=== PATIENT | male | born 1970 | race Caucasian/White ===

== ENCOUNTER 2017-04-27 05:48 | Day surgery (SDC) | payer BC ==
[2017-04-27] MEDS ORDERED: RINGER'S SOLUTION,LACTATED 1,000 ML IV PRN ×2 (06:00→07:28)
[2017-04-27] MEDS ORDERED: RINGER'S SOLUTION,LACTATED 1,000 ML IV ONE (06:20)
[2017-04-27 08:19] VITALS: BP 123/90
--- NOTE | 2017-04-27 18:02 | OR ---
Operative Report - Dictated Report Narrative: OPERATIVE REPORT DATE OF OPERATION: 04/27/2017 PREOPERATIVE DIAGNOSIS: No prior dedicated colon studies. Abdominal pain. Rectal bleeding. Previous diverticulitis by patient history POSTOPERATIVE DIAGNOSIS: Normal colonoscopy to the cecum OPERATION: Colonoscopy SURGEON: Marvin Robert MD ANESTHESIA: SOL Berry CRNA INDICATIONS FOR PROCEDURE: The patient is a 47-year-old male referred by Dr Gonsales. He has had no previous dedicated colon studies. There is no family history of colon cancer. The patient reports being treated with antibiotics for diverticulitis about 10 months ago after a CT scan at [facility]. More recently he was treated empirically with antibiotics due to abdominal discomfort. He has occasional bright red blood on the tissue paper after stooling. FINDINGS: Normal colonoscopy to the cecum. Specifically no diverticulosis was demonstrated, and aside from engorgement of anal canal veins no bleeding sites were identified. NARRATIVE OF PROCEDURE: The patient was identified in the holding area, and prior to the administration of anesthetic, a multidisciplinary timeout was observed. With the patient in the left lateral position and after the administration of intravenous sedation, the perineum was inspected. There was no evidence of pilonidal disease or skin breakdown. The external appearance of the anus was normal. Sphincter tone was good. The flexible fiberoptic colonoscope was inserted into the rectum which was insufflated with air. The scope was withdrawn and reinserted through the anal canal. Aside from mild prominence of the anal canal veins, there was no evidence of fissure or prior bleeding site. The rectal mucosa and submucosal vascular pattern appeared normal, the prep was seen to be complete. The scope was advanced through the sigmoid colon, up the descending colon, and around the splenic flexure where the triangular haustral architecture of the transverse colon was seen. The scope was advanced across the transverse colon, around the hepatic flexure to the cecum, where the confluence of tenia and the ileocecal valve were identified. The mucosa at this level appeared normal. The scope was then slowly withdrawn in a circular fashion so that all aspects of colonic mucosa were inspected. The colon was relatively normal in course and caliber. The haustral architecture appeared well preserved throughout with no evidence of external compression. The mucosa and submucosal vascular pattern appeared normal, specifically there was no gross evidence to suggest colitis or inflammatory bowel disease and no AV malformations were seen. Despite a diligent search no marlo diverticular openings were demonstrated. No polyps were encountered. The scope was gradually withdrawn to the level of the rectum. As much insufflated air as possible was removed. The scope was withdrawn from the patient and the procedure terminated. The patient tolerated the anesthetic and procedure well without complication and was transferred back to the ambulatory surgery area awake and in stable condition. The patient remained stable throughout a period of postoperative observation. He denied abdominal discomfort, was able to tolerate by mouth intake, and was up without assistance. I shared the operative findings with the patient and he was given copies of the photographs which appear in the medical record. He was discharged home with instructions not to engage in hazardous activity today, but may resume normal activity tomorrow, and advance diet as tolerated. He is to continue those medications as listed in the history and physical exam. Pamphlets on colon screening and information on the use of Benefiber and MiraLAX were reviewed with the patient and given to him in the clinic. Continued use of Benefiber/MiraLAX with titration was recommended RECOMMENDATION: Colon surveillance in 10 years depending upon findings or symptoms Reviewed and electronically signed
== END 2017-04-27 05:49 | disposition home or self-care (01) ==
LOC: AMB 05:48
PROVIDERS: ATTEND Surgery
PROC: 0DJD8ZZ Inspection of Lower Intestinal Tract, Via Natural or Artificial Opening Endoscopic (ICD-10-PCS; principal; 2017-04-27 07:00)
DX: K62.5 Hemorrhage of anus and rectum (principal); R19.4 Change in bowel habit; Z87.891 Personal history of nicotine dependence; Z68.27 Body mass index [BMI] 27.0-27.9, adult

== ENCOUNTER 2018-10-24 09:12 | Observation (INO) ==
[2018-10-24 09:52] LABS: Hematocrit 42.2 % (42.0-52.0); Hemoglobin 14.4 gm/dL (13.5-18.0); Mean Cell Volume 87.9 fl (78-100); Mean Corpuscular Hgb Conc 34.1 g/dl (32-36); Mean Platelet Volume 10.4 fl (8-11.3); Neutrophil # 3.9 K/mm3 (1.3-6.0); Neutrophil % 59.7 % (42-75.0); Platelet Count 319 K/mm3 (150-450); Red Cell Distribution Width 12.5 % (11.5-14.0); White Blood Count 6.4 K/mm3 (4.0-10.5)
--- NOTE | 2018-10-24 09:52 | ERNOTE ---
Chest Pain/Cardiac HPI Date of Service: 10/24/18 Chief Complaint: Palpitations Time Seen by Provider: 10/24/18 09:51 Source: patient Exam Limitations: no limitations Immunizations: IMMUNIZATION HX Immunizations Up to Date Yes History of Influenza Vaccine No Hx Pneumococcal Vaccination No Allergies/Adverse Reactions: Allergies Penicillins Allergy (Unknown, Verified 09/07/18 11:53) Home Medications: HOME MEDICATIONS NK 10/24/18 [Last Taken Unknown] Pain Score #1 Pain Score: 2 Narrative: The patient is a 48 year old male who presents for near syncope and palpitations which has been present since this am. There are associated symptoms of dyspnea with exertion. The patient reports generalized headache, 2/10. There are alleviating factors of rest. There are aggravating factors of activity. Previous treatments have included: none. The past medical history includes: noncontributory. The social history is negative. The patient has had no ill contacts. Patient states this am while standing in break room talking with staff began having palpitations with abrupt onset of dizziness and near syncope. Patient states that symptoms resolved upon rest. Patient states that over the past few months he has noticed dyspnea with exertion. Review of Systems - Review of Systems Constitutional: Present: fatigue. Absent: recent illness, fever EYE: Present: no symptoms reported ENT: Present: no symptoms reported. Absent: ear pain, nasal drainage, sore throat Respiratory: Present: shortness of breath. Absent: cough Cardiology: Present: palpitations. Absent: chest pain, edema Gastrointestinal/Abdominal: Present: no symptoms reported. Absent: nausea, vomiting, diarrhea, abdominal pain Genitourinary: Present: no symptoms reported. Absent: dysuria Musculoskeletal: Present: no symptoms reported Skin: Present: no symptoms reported. Absent: rash Neurological: Present: dizziness/light-headedness All Other Systems: All systems neg except as marked Medical History (Updated 10/24/18 @ 09:28 by Jaime Ornelas RN) No pertinent past medical history Surgical History: Surgical History (Updated 10/24/18 @ 09:28 by Jaime Ornelas RN) No pertinent past surgical history Family History: Family History (Updated 10/24/18 @ 09:29 by Jaime Ornelas RN) Other Diabetes Hypertension Social History: Preferred Language Turkish Do you have any muslim or No cultural preference? Smoking Status Never smoker Abuse History No History of abuse Psych History No pertinent hx Alcohol Use occasionally Drug Use none No Social History Section defined Physical Exam - Physical Exam General Appearance: Present: wd/wn, alert, no apparent distress Head Exam: Present: normal inspection, no evidence of injury Eye Exam: Normal inspection: bilateral, PERRL: bilateral Ears, Nose, Throat: Present: normal ENT inspection, normal pharynx Neck: Present: normal inspection Respiratory: Present: no respiratory distress, normal breath sounds, no accessory muscle use, lungs clear Cardiovascular/Chest: Present: regular rate, rhythm, no murmur, extra beats - PVCs Peripheral Pulses: N=norm/S=strong/W=weak/B=bound/A=absent: Radial (R): Normal Gastrointestinal/Abdominal: Present: normal bowel sounds, nontender, nondistended, soft, no organomegaly Extremity Exam: Present: no edema Neurological Exam: Present: alert, oriented, normal mood/affect, no motor/sensory deficits Skin Exam: Present: normal color, warm/dry Progress - Date and Time Seen: Date and Time: 10/24/18 10:42 Discussed case with , will admit for symptomatic PVC's and near syncope. - Results and Orders Patient's Lab Results:: I have reviewed the patient's lab results. - Vital Signs Patient's Vital Signs:: I have reviewed the patient's vital signs. Vital Signs: Vital Signs 10/24/18 09:13 Temperature 36.9 C Pulse Rate 61 Respiratory Rate 14 O2 Sat by Pulse Oximetry 95 - EKG EKG #1 EKG: NSR EKG read: Interp. by me EKG Comments: 3 lead shows PVCs, patient symptomatic with tracing. - X-Ray X-Ray #1 X-Ray: chest Interpretation: Reviewed by me X-ray Comments: IMPRESSION: 1. No focal acute cardiopulmonary finding. 2. Hypoventilatory changes. Electronically signed by Neto Rodriguez M.D.. - Progress/Reassessment Chief Complaint: Palpitations Progress:: Unchanged Departure Clinical Impression: Near syncope, Symptomatic PVCs - Departure Disposition: Still a patient Condition: Good
[2018-10-24 10:08] LABS: ALT 31 U/L (19-67); AST 17 U/L (0-48); Albumin * 4.1 gm/dl (3.4-5.0); Alkaline Phosphatase * 57 U/L (50-170); Anion Gap 14.9 mmol/L (6.8-13.8); BUN/Creatinine Ratio 17.2 (9.0-21.6); Bilirubin, Total 0.7 mg/dL (0.0-1.1); Blood Urea Nitrogen 15 mg/dL (6-23); Ca. Corrected For Albumin 8.8 mg/dL (8.4-10.2); Calcium * 9.2 mg/dL (7.9-10.9); Carbon Dioxide 24.7 mmol/L (24-32.6); Chloride 102 mmol/L (97-106); Glucose * 100 mg/dL (70-110); Magnesium 1.8 mg/dL (1.2-2.8); Potassium 3.6 mmol/L (3.4-4.6); Sodium 138 mmol/L (132-142); Total Protein 7.4 gm/dL (6.2-8.2)
[2018-10-24 10:09] LABS: Troponin I Less than 0.017 ng/mL (0.00-0.10)
--- NOTE | 2018-10-24 19:57 | HP ---
Chief Complaint - Chief Complaint Date of Service: 10/24/18 Time of Service: 19:57 Chief Complaint: Palpitations, fluttering History of Present Illness: Piotr is a 48 yo male that presents to the ER with fluttering that would not go away. He denies anything out of the ordinary. He reports drinking caffeine but not more than usual. He has otherwise been feeling well. He denies chest pain. He reports he always notices extra beats and hasn't been bothered by them, but today they would not go away. In the ER he was monitored on telemetry and had frequent PVCs that produced symptoms of fluttering. He also reported some shortness of breath during these episodes. No evidence of acute OH. No abnormalities on labs. At this time he reports feeling normal and does not notice any extra beats. Medical History (Updated 10/24/18 @ 10:42 by SONIA Nguyen) No pertinent past medical history Surgical History: Surgical History (Updated 10/24/18 @ 09:28 by Jaime Ornelas RN) No pertinent past surgical history Family History: Family History (Updated 10/24/18 @ 09:29 by Jaime Ornelas RN) Other Diabetes Hypertension Social History: Patient Lives/Resources Home Utilized Preferred Language Saudi Arabian Do you have any mu-ism or No cultural preference? Smoking Status Never smoker Have you smoked in the past 12 No months Do you dip or chew tobacco No Abuse History No History of abuse Psych History No pertinent hx Alcohol Use occasionally Drug Use none No Social History Section defined Review Of Systems (GEN) - Review of Systems Generalized/Overall Review: Absent: Weakness, Chills, Fever EENTM: Present: No Symptoms Reported Respiratory: Absent: Cough, Shortness of Breath Cardiac: Present: Palpitations. Absent: Chest Pain, Edema, Syncope Abdominal: Absent: Nausea, Vomiting Genitourinary: Present: No Symptoms Reported Musculoskeletal: Present: No Symptoms Reported Neurological: Present: No Symptoms Reported Skin: Present: No Symptoms Reported Endocrine: Present: No Symptoms Reported Immunizations: IMMUNIZATION HX Immunizations Up to Date Yes History of Influenza Vaccine No Hx Pneumococcal Vaccination No Allergies/Adverse Reactions: Allergies Allergy/AdvReac Type Severity Reaction Status Date / Time Penicillins Allergy Severe Anaphylaxis Verified 11/01/18 10:19 Home Medications: HOME MEDICATIONS NK 10/24/18 [Last Taken Unknown] Exam - Exam Vital Signs: Vital Signs - Last Taken Temp 36.7 C 10/24/18 18:34 Pulse 59 L 10/24/18 18:34 Resp 16 10/24/18 18:34 BP 138/78 10/24/18 18:34 Pulse Ox 95 10/24/18 18:34 Constitutional: Present: Alert, Oriented x3, Cooperative ENT Exam: Present: hearing grossly normal Eye Exam: bilateral eye: normal inspection Respiratory: Present: lungs clear, normal breath sounds Cardiovascular/Chest: Present: regular rate, rhythm, no murmur Peripheral Pulses: radial (R): 2+, radial (L): 2+ Abdomen: Present: Normal bowel sounds, soft, nontender, nondistended Extremity: Present: normal inspection Skin Exam: Present: normal color, warm/dry, no cyanosis Neurologic: Present: no motor/sensory deficits, alert, normal mood/affect, oriented x 3 Appearance: Present: appropriate appearance, appropriate insight Eye contact: Present: cooperative, good eye contact, normal speech Thoughts: Present: normal thought pattern, no apparent hallucination Diagnostic Studies: Abnormal Lab Results 10/24/18 10/24/18 Range/Units 09:34 09:50 Eosinophils % 5.3 H (0.0-3.0) % Basophils % 1.7 H (0.0-1.0) % Anion Gap 14.9 H (6.8-13.8) mmol/L Laboratory Results WBC 6.4 K/mm3 (4.0-10.5) 10/24/18 09:34 RBC 4.80 M/mm3 (4.7-6.0) 10/24/18 09:34 Hgb 14.4 gm/dL (13.5-18.0) 10/24/18 09:34 Hct 42.2 % (42.0-52.0) 10/24/18 09:34 MCV 87.9 fl (78-100) 10/24/18 09:34 MCH 30.0 pg (27-31) 10/24/18 09:34 MCHC 34.1 g/dl (32-36) 10/24/18 09:34 RDW 12.5 % (11.5-14.0) 10/24/18 09:34 Plt Count 319 K/mm3 (150-450) 10/24/18 09:34 MPV 10.4 fl (8-11.3) 10/24/18 09:34 Immature Gran % (Auto) 0.20 % (0.001-0.429) 10/24/18 09:34 Immature Gran # (Auto) 0.01 K/mm3 (0.000-0.0310) 10/24/18 09:34 59.7 % (42-75.0) 10/24/18 09:34 27.2 % (20-51) 10/24/18 09:34 5.9 % (0.0-9) 10/24/18 09:34 5.3 % (0.0-3.0) H 10/24/18 09:34 1.7 % (0.0-1.0) H 10/24/18 09:34 Nucleated RBC % 0.0 k/mm3 (0-1) 10/24/18 09:34 3.9 K/mm3 (1.3-6.0) 10/24/18 09:34 1.75 k/mm3 (1.5-3.5) 10/24/18 09:34 0.4 k/mm3 (0.0-1.0) 10/24/18 09:34 0.3 k/mm3 (0.0-0.7) 10/24/18 09:34 Absolute Basophils 0.1 k/mm3 (0.0-0.1) 10/24/18 09:34 Sodium 138 mmol/L (132-142) 10/24/18 09:50 138 mmol/L (130-142) 10/24/18 09:50 Potassium 3.6 mmol/L (3.4-4.6) 10/24/18 09:50 Chloride 102 mmol/L (97-106) 10/24/18 09:50 Carbon Dioxide 24.7 mmol/L (24-32.6) 10/24/18 09:50 14.9 mmol/L (6.8-13.8) H 10/24/18 09:50 BUN 15 mg/dL (6-23) 10/24/18 09:50 0.87 mg/dL (0.4-1.4) 10/24/18 09:50 Est GFR (Non-Af Amer) 100 mL/min (60-130) 10/24/18 09:50 17.2 (9.0-21.6) 10/24/18 09:50 100 mg/dL (70-110) 10/24/18 09:50 Calcium 9.2 mg/dL (7.9-10.9) 10/24/18 09:50 Calcium Adj for Albumin 8.8 mg/dL (8.4-10.2) 10/24/18 09:50 Magnesium 1.8 mg/dL (1.2-2.8) 10/24/18 09:50 0.7 mg/dL (0.0-1.1) 10/24/18 09:50 AST 17 U/L (0-48) 10/24/18 09:50 ALT 31 U/L (19-67) 10/24/18 09:50 57 U/L (50-170) 10/24/18 09:50 Less than 0.017 ng/mL (0.00-0.10) 10/24/18 15:55 7.4 gm/dL (6.2-8.2) 10/24/18 09:50 4.1 gm/dl (3.4-5.0) 10/24/18 09:50 TSH 3.148 uIU/mL (0.358-3.74) 10/24/18 15:55 Assessment/Plan - Assessment/Plan (1) Symptomatic PVCs Assessment: Piotr is a 48 yo male with symptomatic PVCs. There is no evidence of acute OH. Since he was having significant symptoms will monitor in observation over night on telemetry. Will obtain serial troponins. If he has no significant findings over night will plan to discharge to home tomorrow. Problem: Acute
--- NOTE | 2018-10-25 10:22 | DS ---
(1) Symptomatic PVCs Problem: Acute Description of Stay: Piotr is a 48 yo male that presented to the [facility] ER with fluttering in his chest and shortness of breath. He was found to have symptomatic frequent PVCs. Initial work up was negative for acute IA. He was admitted to observation on telemetry. Repeat troponin was also negative. On telemetry his rhythm was sinus bradycardia with some sinus arrhythmia and occasional PVCs. These are noticeable to the patient although typically do not bother him. I discussed avoiding caffeine and other stimulants. He overall feels fine and PVCs are mostly occasional. He feels comfortable decreasing his caffeine intake and monitoring his symptoms. As his baseline heart rhythm is sinus bradycardia I would avoid beta blockers at this time. Will follow up with him in clinic and plan to get an outpatient echocardiogram. Procedures Performed: none Results and Findings: Lab Pending Results 10/24/18 09:34: WBC 6.4, RBC 4.80, Hgb 14.4, Hct 42.2, MCV 87.9, MCH 30.0, MCHC 34.1, RDW 12.5, Plt Count 319, MPV 10.4, Immature Gran % (Auto) 0.20, Immature Gran # (Auto) 0.01, Neutrophils % 59.7, Lymphocytes % 27.2, Monocytes % 5.9, Eosinophils % 5.3 H, Basophils % 1.7 H, Nucleated RBC % 0.0, Neutrophils # 3.9, Lymphocytes # 1.75, Monocytes # 0.4, Eosinophils # 0.3, Absolute Basophils 0.1 10/24/18 09:50: Sodium 138, Plasma Sodium 138, Potassium 3.6, Chloride 102, Carbon Dioxide 24.7, Anion Gap 14.9 H, BUN 15, Creatinine 0.87, Est GFR (Non-Af Amer) 100, BUN/Creatinine Ratio 17.2, Random Glucose 100, Calcium 9.2, Calcium Adj for Albumin 8.8, Magnesium 1.8, Total Bilirubin 0.7, AST 17, ALT 31, Alkaline Phosphatase 57, Troponin I Less than 0.017, Total Protein 7.4, Albumin 4.1 10/24/18 15:55: Troponin I Less than 0.017 10/24/18 15:55: TSH 3.148 Discharge Location: Home Disposition: Home self-care Condition: Good Discharge Activity: Activity as tolerated Discharge Diet: General/regular food - Limit caffeine Referrals: Zeeshan Mason DO [Staff Physician] - One Week Problem Oriented Discharge Instructions to Patient/Family: Premature Ventricular Contraction Complete Home Medications List: Complete Home Medication List: NK 10/24/18
[2018-10-25 10:42] VITALS: BP 123/87
== END 2018-10-25 11:45 | disposition home or self-care (01) ==
LOC: ER 09:12 → MS 09:12
PROVIDERS: ADMIT Family Medicine; ATTEND Family Medicine
DX: I49.3 Ventricular premature depolarization
CPT/HCPCS: 36415; 71020; 71046; 80053; 83735; 84443; 84484; 85025; 93005; 99285; G0378